=== PATIENT | female | born 2000 | race African-American/Black ===

== ENCOUNTER 2022-10-29 14:32 | Emergency (ER) | payer OTHER ==
[2022-10-29 14:58] VITALS: RESP 17; TEMP 98.6; BMI 29.1
[2022-10-29] MEDS ORDERED: ACETAMINOPHEN 1000 MG/100 ML BAG IVPB ONE (15:13)
[2022-10-29] MEDS ORDERED: KETOROLAC TROMETHAMINE 15 MG/ML VIAL IVPUSH ONE (15:13)
[2022-10-29] MEDS ORDERED: METHOCARBAMOL 750 MG TAB PO ONE (15:13)
[2022-10-29] MEDS ORDERED: ACETAMINOPHEN INJECTION 100 ML IVPB ONE (15:21)
[2022-10-29] MEDS ORDERED: METHOCARBAMOL 500 MG TABLET ONE (15:21)
[2022-10-29] MEDS ORDERED: KETOROLAC TROMETHAMINE 15 MG/ML VIAL ONE (15:21)
[2022-10-29 15:31] LABS: BASO % 0.8 % (0-2.0); EOS % 2.4 % (0-4.5); HEMATOCRIT 36.5 % (32.4-45.2); HEMOGLOBIN 12.3 GM/dL (10.7-15.3); MCH 30.6 pg (25.7-33.7); MCHC 33.7 g/dl (32.0-36.0); MEAN PLT VOLUME 6.8 fl (7.5-11.1); MONO % 14.5 % (3.8-10.2); NEUT % 45.3 % (42.8-82.8); PLATELET COUNT 341 10^3/uL (134-434); RBC 4.01 M/mm3 (3.60-5.2); RDW 12.5 % (11.6-15.6); WHITE BLOOD COUNT 7.3 K/mm3 (4.0-10.0)
[2022-10-29 15:40] LABS: POTASSIUM 3.9 mmol/L (3.5-5.1)
[2022-10-29 15:42] LABS: ALBUMIN 3.6 g/dl (3.4-5.0); BLOOD UREA NITROGEN 7.4 mg/dL (7-18)
[2022-10-29 15:45] LABS: CREATININE 0.8 mg/dL (0.55-1.3)
[2022-10-29 15:47] LABS: BILIRUBIN,TOTAL 1.1 mg/dL (0.2-1)
[2022-10-29 18:06] LABS: URINE APPEARANCE CLEAR; URINE BILIRUBIN NEGATIVE (NEGATIVE); URINE COLOR YELLOW; URINE GLUCOSE (UA) NEGATIVE (NEGATIVE); URINE KETONE NEGATIVE (NEGATIVE); URINE LEUK ESTERASE NEGATIVE (NEGATIVE); URINE NITRITE NEGATIVE (NEGATIVE); URINE PROTEIN NEGATIVE (NEGATIVE)
[2022-10-29 18:33] VITALS: BP 106/49; PULSE 65
== END 2022-10-29 18:41 | disposition home or self-care (01) ==
LOC: JER 14:32
PROC: 3E033NZ Introduction of Analgesics, Hypnotics, Sedatives into Peripheral Vein, Percutaneous Approach (ICD-10-PCS; principal; 2022-10-29)
PROC: 3E0333Z Introduction of Anti-inflammatory into Peripheral Vein, Percutaneous Approach (ICD-10-PCS; 2022-10-29)
DX: M54.50 Low back pain, unspecified (principal)
CPT/HCPCS: 36415; 72125-TC; 72128-TC; 72131-TC; 80053; 81003; 84703; 85025; 99284-25